=== PATIENT | male | born 1950 | race Caucasian/White ===

== ENCOUNTER 2016-11-26 12:07 | Emergency (ER) | payer MEDICARE, MEDICAID ==
[~2016-11-26] VITALS: Ht 172.7 cm; Wt 81.6 kg
[~2016-11-26 12:07] MED LIST: ALPR0.5T8; CALC60OI6; NEBI5TAB8
--- NOTE | 2016-11-26 12:25 | NUR ---
Dr Singer at the bedside for eval and exam.
[2016-11-26] MEDS ORDERED: KETOROLAC TROMETHAMINE 15 MG INJ IV ONE (12:30)
[2016-11-26] MEDS ORDERED: KETOROLAC TROMETHAMINE 15 MG INJ ONE (12:48)
[2016-11-26 12:54] LABS: *BILIRUBIN,URIN NEGATIVE (NEGATIVE); *BLOOD, URINE 2+ (NEGATIVE); *CLARITY,URINE CLEAR (CLEAR); *COLOR,URINE YELLOW (YELLOW); *KETONES,URINE NEGATIVE (NEGATIVE); *PROTEIN,URINE NEGATIVE (NEGATIVE); *UROBILINOGEN,URINE 0.2 E.U./dl (NORMAL); LEUKOCYTE ESTERASE ,URINE NEGATIVE (NEGATIVE); NITRITE, URINE NEGATIVE (NEGATIVE); UGLUCOSE NEGATIVE (NEGATIVE)
[2016-11-26 13:02] LABS: BACTERIA,URINE NONE SEEN /HPF (NONE SEEN); BASOPHILS # (AUTO) 0.2 K/uL (0.0-8.0); BASOPHILS % (AUTO) 2.2 % (0.0-2.0); CREATININE 0.9 mg/dL (0.6-1.3); EOSINOPHILS # (AUTO) 0.3 K/uL (0.0-0.7); EOSINOPHILS % (AUTO) 2.7 % (0.0-7.0); HEMATOCRIT 51.5 % (40-50); HEMOGLOBIN 17.5 G/DL (14.0-18.0); LYMPHOCYTES # (AUTO) 2.2 K/UL (0.8-4.8); LYMPHOCYTES % (AUTO) 20.2 % (20.5-51.5); MEAN CORPUSCULAR HEMOGLOBIN 32.9 UUG (27.0-31.0); MEAN CORPUSCULAR HGB CONC 34 g/dL (32.0-37.0); MEAN CORPUSCULAR VOLUME 97.1 FL (82.0-92.0); MONOCYTES # (AUTO) 0.8 K/UL (0.1-1.30); NEUTROPHILS # (AUTO) 7.5 K/UL (1.8-8.9); NEUTROPHILS % (AUTO) 67.9 % (38.5-71.5); PLATELET COUNT (AUTO) 243 K/UL (150-450); POTASSIUM 4.4 mmol/L (3.5-5.1); RED BLOOD CELL COUNT(AUTO) 5.31 MIL/UL (4.7-6.1); SQUAMOUS EPITHELIAL CELL,UR FEW /HPF (NONE SEEN); WBC,URINE 0-3 /HPF (0-3)
[2016-11-26 13:08] LABS: BILIRUBIN,DIRECT 0.1 mg/dL (0.0-0.2); BILIRUBIN,TOTAL 0.4 mg/dL (0.2-1.0); TOTAL PROTEIN, SERUM 8.1 g/dL (6.4-8.2)
--- NOTE | 2016-11-26 13:55 | NUR ---
IV removed. Catheter intact and site benign. Pressure and 4x4 gauze applied to site. No bleeding noted.
[2016-11-26 13:57] VITALS: BP 156/88
== END 2016-11-26 14:00 | disposition home or self-care (01) ==
LOC: ER 12:07
DX: R31.9 Hematuria, unspecified (principal); I10 Essential (primary) hypertension; Z88.0 Allergy status to penicillin
CPT/HCPCS: 36415; 70030-TC; 71010; 83605; 83690; 85025; 85651; 87040; A4663; J1885

== ENCOUNTER 2017-08-06 12:53 | Emergency (ER) | payer MEDICAID, MEDICARE ==
[~2017-08-06] VITALS: Ht 175.3 cm; Wt 86.2 kg
[2017-08-06] MEDS ORDERED: IBUPROFEN 600 MG TABLET ONE (13:06)
[2017-08-06] MEDS ORDERED: ZOLPIDEM TARTRATE 10 MG (13:07)
[2017-08-06] MEDS ORDERED: ALPRAZOLAM 1 MG (13:07)
[2017-08-06] MEDS ORDERED: EDARBI 40 MG (13:07)
[2017-08-06] MEDS ORDERED: AMPHET (13:07)
[2017-08-06] MEDS ORDERED: DEXTR (13:07)
[2017-08-06] MEDS ORDERED: IBUPROFEN 600 MG TABLET PO ONE (13:15)
--- NOTE | 2017-08-06 13:31 | NUR ---
Patient discharged to home in stable conditon. Written and verbal after care instructions given to patient. Patient verbalizes understanding of instructions. Patient left ER with brisk steady gait.
== END 2017-08-06 13:32 | disposition home or self-care (01) ==
LOC: ER 12:53
DX: S22.32XA Fracture of one rib, left side, initial encounter for closed fracture (principal); I10 Essential (primary) hypertension; Z88.0 Allergy status to penicillin; Z79.899 Other long term (current) drug therapy; X58.XXXA Exposure to other specified factors, initial encounter; Y93.89 Activity, other specified; Y92.89 Other specified places as the place of occurrence of the external cause; Y99.8 Other external cause status
CPT/HCPCS: 71101; A4663

== ENCOUNTER 2019-05-02 18:20 | Emergency (ER) | payer MEDICARE, OTHER ==
[~2019-05-02] VITALS: Ht 172.7 cm; Wt 86.2 kg
[~2019-05-02 18:20] MED LIST changes: +ALPRAZOLAM 1 MG; +AMPHET; +DEXTR; +EDARBI 40 MG; +ZOLPIDEM TARTRATE 10 MG
[2019-05-02] MEDS ORDERED: AMPH15TA2 PO (18:27)
[2019-05-02] MEDS ORDERED: ALPR0.5T8 PO (18:27)
[2019-05-02] MEDS ORDERED: TAMS-3 PO (18:27)
[2019-05-02] MEDS ORDERED: NEBI5TAB8 PO (18:27)
--- NOTE | 2019-05-02 19:16 | NUR ---
Patient discharged to home in stable conditon. Written and verbal after care instructions given. Patient verbalizes understanding of instructions. Patient ambulated with stable gait.
[2019-05-02 19:17] VITALS: BP 145/81
== END 2019-05-02 19:18 | disposition home or self-care (01) ==
LOC: ER 18:20
DX: T78.40XA Allergy, unspecified, initial encounter (principal); J20.9 Acute bronchitis, unspecified; I10 Essential (primary) hypertension; Z88.0 Allergy status to penicillin; Z79.899 Other long term (current) drug therapy
CPT/HCPCS: A4663